=== PATIENT | female | born 1955 | race Caucasian/White ===

== ENCOUNTER 2018-09-24 10:04 | Day surgery (SDC) | payer OTHER ==
[2018-09-24] VITALS (17 sets, daily range): BP systolic 101–147; BP diastolic 50–72; PULSE 59–77; RESP 11–28; Ht 152.4 cm; Wt 81.9 kg
[~2018-09-24] VITALS: Ht 152.4 cm; Wt 81.9 kg
[~2018-09-24 10:04] MED LIST: ASPI-817 PO; CEFAZOLIN 2 GM/50 ML (PMX) 50 ML IVPB ONE; LOSA50TA14 PO; SOD CHLORIDE 0.9% 1,000 ML IV ONE
[2018-09-24] MEDS ORDERED: APIX5TAB PO (10:47)
[2018-09-24] MEDS ORDERED: LOSA50TA14 PO (10:48)
[2018-09-24] MEDS ORDERED: ATOR10TA65 PO (10:48)
[2018-09-24] MEDS ORDERED: AMLO5TAB4 PO (10:48)
[2018-09-24] MEDS ORDERED: ERGO2000 PO (10:49)
[2018-09-24] MEDS ORDERED: POLY17PO6 PO (10:49)
[2018-09-24] MEDS ORDERED: OMEP10CA4 PO (10:49)
--- NOTE | 2018-09-24 12:09 | HPN ---
Date/Time of Note Date/Time of Note DATE: 09/24/18 TIME: 12:09 Interval H&P Admission Note Pt. seen H&P reviewed: No system changes KEVON SOSA MD Sep 24, 2018 12:09
--- NOTE | 2018-09-24 12:13 | PREAC ---
Date/Time of Note Date/Time of Note DATE: 09/24/18 TIME: 12:11 Anesthesia Eval and Record Evaluation Time Pre-Procedure Interview DATE: 09/24/18 TIME: 12:11 Age 63 Sex female NPO: 8 hrs Preoperative diagnosis right shoulder mass Planned procedure excision of right shoulder mass Past Medical History Past Medical History: Includes Cardio: HTN, Dyslipidemia GI: Morbid obesity Heme: Other (hx of dvt) Surgery & Anesthesia Issues No known issue Meds Anticoagulation: No Beta Nia within 24 hr: No Reason Beta Nia not given: Pt. not on B-Nia Reported Medications Ergocalciferol (Vitamin D2) (VITAMIN D2) 2,000 Unit Tablet, 2000 UNIT PO DAILY, TAB 09/24/18 Omeprazole* (Omeprazole*) 10 Mg Capsule., 10 MG PO DAILY, #30 CAP 09/24/18 Polyethylene Glycol* (Miralax*) 17 Gm Powd.pack, 17 GM PO DAILY, #30 PACKET 09/24/18 Losartan Potassium* (Losartan Potassium*) 50 Mg Tablet, 50 MG PO DAILY, TAB 09/24/18 Atorvastatin Calcium (Atorvastatin Calcium) 10 Mg Tablet, 10 MG PO QHS, #30 TAB 09/24/18 Amlodipine Besylate* (Norvasc*) 5 Mg Tablet, 5 MG PO DAILY, TAB 09/24/18 Apixaban* (Eliquis*) 5 Mg Tablet, 5 MG PO BID, TAB 09/24/18 Discontinued Reported Medications Aspirin* (Aspirin* EC) 81 Mg Tablet.dr, 81 MG PO DAILY, TAB 11/25/14 Losartan Potassium* (Losartan Potassium*) 50 Mg Tablet, 50 MG PO DAILY, TAB 11/25/14 Current Medications Sodium Chloride 1,000 ml @ 75 mls/hr [id number] ONCE IV ; Start 09/24/18 at 10:00; Stop 09/24/18 at 23:19 Meds reviewed: Yes Allergies Coded Allergies: lisinopril (Verified Adverse Reaction, Unknown, COUGH, 09/24/18) Allergies Reviewed: Yes Labs/Studies Labs Reviewed: Reviewed by anesthesiologist test: N/A Studies: ECG, CXR Pre-procedure Exam Last vitals Vital Signs Date Temp Pulse Resp B/P (MAP) Pulse Ox O2 O2 Flow FiO2 Time Delivery Rate 09/24/18 97.0 59 16 147/72 98 Room Air 11:17 (97) Airway: Adequate mouth opening, Adequate thyromental dist Mallampati: Mallampati II Teeth: Normal Lung: Normal Heart: Normal ASA Physical Status ASA physical status: 2 Emergency: None Planned Anesthetic General/MAC: LMA Planned Pain Management Parenteral pain med Pre-operative Attestations Prior to commencing anesthesia and surgery, the patient was re-evaluated, there was verification of: *The patient's identity *The results of appropriate recent lab work and preoperative vital signs *The above evaluation not changing prior to induction *Anesthetic plan, risk benefits, alternative and complications discussed with patient/family; questions answered; patient/family understands, accepts and wishes to proceed. YAMIL GREWAL Sep 24, 2018 12:13
[2018-09-24] MEDS ORDERED: BUPIVACAINE 0.25% (MPF) 30 ML INJ ONE (12:14)
[2018-09-24] MEDS ORDERED: PROPOFOL 100 ML ONE (12:33)
[2018-09-24] MEDS ORDERED: FENTAnyl 50 MCG/ML VIAL ONE (12:34)
[2018-09-24] MEDS ORDERED: LIDOCAINE 2% (SDV) 5 ML INJ ONE (12:34)
[2018-09-24] MEDS ORDERED: CEFAZOLIN 1 GM INJ ONE (12:51)
--- NOTE | 2018-09-24 13:41 | OPR ---
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 This had been present for the past 2 to 3 years. Patient reported growth and increasing pain and discomfort. She was scheduled for elective excision for symptom relief and definitive pathological diagnosis. All risks and benefits of the procedure including, but not limited to: Wound infection, excessive bleeding, postoperative seroma/hematoma formation, mass recurrence, etc. were all explained to the patient and her daughter in full detail. They understood and wished to proceed with the procedure. Informed consent was obtained. Of note, the patient was on Eliquis for a chronic DVT. This was held per her primary care physician and manager body prior to surgery. We discussed the increasing risk of bleeding, bruising and hematoma on patients on anticoagulation medication. Both the patient and her daughter verbalized their understanding of this and wished to proceed. Procedure Description The patient was brought to the operating room and placed supine on the operating table. Bilateral sequential compression devices were placed on both lower extremities. A dose of broad-spectrum perioperative intravenous antibiotics was given. The mass which was located in the right upper back/shoulder area was preoperatively marked and confirmed with the patient and her daughter in the holding area. After achieving adequate general anesthesia the patient was then positioned in the right lateral decubitus position with the left side. The back and shoulder were then prepped and draped in standard surgical fashion. After performance of the surgical timeout, 0.25% Marcaine with epinephrine was injected in a radial fashion around the area of the mass creating a field block. Incision was then made over the mass using a 15 blade scalpel. Incision was carried through the skin and subcutaneous tissues down to the level of the fascia using Bovie electrocautery. The fascia was then incised. A subfascial lipomatous neoplasm was identified sitting on top of the muscle. It was tediously and carefully dissected free of surrounding tissues using combination of blunt dissection and Bovie electrocautery. Once the mass was able to be delivered through the incision it was transected at its base and passed off the field as specimen. The mass measured approximately 9 cm in maximal dimension. Hemostasis was then obtained and the wound cavity with Bovie electrocautery. The wound cavity was then irrigated with warm saline and the irrigant returned clear. Hemostasis was noted to be total. Further local anesthesia was then injected around the incision site. The fascia was then reapproximated using a running 3-0 Vicryl suture. The dermis was reapproximated using interrupted 3-0 Vicryl sutures. The skin was reapproximated using 4-0 Monocryl suture in a run darya subcuticular fashion. Incision was then cleaned and Dermabond was applied. Patient was awoken from anesthesia and transported to the recovery room in stable condition. All counts were correct at the end of the case x2 KEVON SOSA MD Sep 24, 2018 13:41
--- NOTE | 2018-09-24 13:44 | PAC ---
Date/Time of Note Date/Time of Note DATE: 09/24/18 TIME: 13:43 Post-Anesthesia Notes Post-Anesthesia Note Last documented vital signs Vital Signs Date Temp Pulse Resp B/P (MAP) Pulse Ox O2 O2 Flow FiO2 Time Delivery Rate 09/24/18 97.0 59 16 147/72 98 Room Air 1344 (97) Activity: WNL Respiratory function: WNL Cardiovascular function: WNL Mental status: Baseline Pain reasonably controlled: Yes Hydration appropriate: Yes Nausea/Vomiting absent: Yes YAMIL GREWAL Sep 24, 2018 13:44
[2018-09-24] MEDS ORDERED: ONDANSETRON 4 MG INJ IV PRN ×2 (14:00)
[2018-09-24] MEDS ORDERED: EPHEDrine 25 MG/5 ML SYG IV PRN (14:00)
[2018-09-24] MEDS ORDERED: KETOROLAC 30 MG INJ IV PRN (14:00)
[2018-09-24] MEDS ORDERED: MEPERIDINE 25 MG INJ IV PRN (14:00)
[2018-09-24] MEDS ORDERED: LABETALOL HCL 20MG INJ IV PRN (14:00)
[2018-09-24] MEDS ORDERED: HYDROCODONE/APAP (5/325) TAB PO PRN (14:00)
[2018-09-24] MEDS ORDERED: DIPHENHYDRAMINE 50 MG INJ IV PRN (14:00)
[2018-09-24] MEDS ORDERED: OXYCODONE/ACETAMINOPHEN (5/325) TAB PO PRN ×2 (14:00)
[2018-09-24] MEDS ORDERED: METOCLOPRAMIDE 10 MG INJ IV PRN (14:00)
[2018-09-24] MEDS ORDERED: ALBUTEROL 0.083% (NEB) 2.5 MG/3 ML AMP HHN PRN (14:00)
[2018-09-24] MEDS ORDERED: ACETAMINOPHEN 325 MG TAB PO PRN (14:00)
[2018-09-24] MEDS ORDERED: hydrALAzine 20 MG INJ IV PRN (14:00)
[2018-09-24] MEDS ORDERED: MIDAZOLAM 1 MG/ML 2 ML INJ IV PRN (14:00)
[2018-09-24] MEDS ORDERED: morphine 2 MG INJ IV PRN (14:00)
[2018-09-24] MEDS ORDERED: FENTAnyl 50 MCG/ML VIAL IV PRN ×2 (14:00)
[2018-09-24] MEDS: FENTAnyl 50 MCG/ML VIAL IV PRN ×2 (14:11→14:18)
== END 2018-09-24 16:10 | disposition home or self-care (01) ==
LOC: SDS 10:04
PROVIDERS: ATTEND Surgery
DX: D17.21 Benign lipomatous neoplasm of skin and subcutaneous tissue of right arm (principal); I10 Essential (primary) hypertension; E78.5 Hyperlipidemia, unspecified
CPT/HCPCS: 23071; 80053; 85025; 85610; 85730; 88307; J0690; J2270; J3010; Z7512; Z7610